=== PATIENT | female | born 1960 | race Caucasian/White ===

== ENCOUNTER → 2019-04-07 | Outpatient (CLI) | payer BC ==
--- NOTE | 2019-04-07 14:14 | REP ---
REASON FOR EXAM: Pain. COMPARISON: None. AP and lateral views of the left femur were obtained. Minimal asymmetric hip joint space narrowing is noted with minimal knee degenerative changes. There is no acute fracture or destructive osseous lesion. Electronically Signed by Daniele Soto DO 04/08/2019 03:08 P
--- NOTE | 2019-04-07 14:25 | REP ---
Left hip: Two views. History: Left hip pain. Comparison left hip radiographs are from January 11, 2008. Findings: AP and frog-leg views of the left hip show smooth rounded femoral head and intact hip joint space. Periarticular soft tissues are unremarkable. Left hemipelvis appears intact. Impression: Negative radiographs of the left hip. Electronically Signed by Manuel Bustillos MD 04/07/2019 02:17 P
== END ==
LOC: M LRY 08:55
PROVIDERS: ATTEND Internal Medicine
DX: M25.552 Pain in left hip (principal)

== ENCOUNTER → 2020-12-13 | Outpatient (CLI) | payer BC ==
--- NOTE | 2020-12-13 17:15 | REP ---
INDICATION: PELVIC PAIN W/ FM H/O OF OVARION CA. COMPARISON: Multiple the latest 02/03/2014 TECHNIQUE: Transvesical and transvaginal FINDINGS: The uterus measures 8.4 x 3.1 x 4.9 cm. The parenchymal echo prior and is stable in appearance compared to the prior exam. There are no focal masses. The endometrial echo complex measures 1.6 mm in its greatest thickness and is within normal limits. The right ovary was not visualized transvesical air transvaginally. The patient is status post left oophorectomy. No adnexal masses were identified. There is no evidence of free fluid. IMPRESSION: No abnormalities noted on this limited exam with findings as described above. <Electronically signed by Daniele Soto > 12/13/20 [id number]
== END ==
LOC: M RAD 16:31
PROVIDERS: ATTEND Internal Medicine
DX: R10.2 Pelvic and perineal pain (principal)

== ENCOUNTER → 2023-12-12 | Outpatient (REF) | payer OTHER | LOC: M LAB REF 11:23 | PROVIDERS: ATTEND Internal Medicine | DX: E83.52 Hypercalcemia (principal) ==

== ENCOUNTER → 2024-04-29 | Outpatient (REF) | payer OTHER | LOC: M LAB REF 16:18 | PROVIDERS: ATTEND Internal Medicine | DX: E21.2 Other hyperparathyroidism (principal) ==

== ENCOUNTER → 2024-11-18 | Outpatient (REF) | payer OTHER ==
[2024-11-20 08:13] LABS: PROTEIN, TOTAL SO 7.5 g/dL (6.1-8.1)
[2024-11-20 16:52] LABS: UPEP CREATININE 49 mg/dL (20-275); UPEP TOTAL PROTEIN < 4 mg/dL (5-24)
== END ==
LOC: M LAB REF 17:18
PROVIDERS: ATTEND Internal Medicine
DX: E87.5 Hyperkalemia (principal)

== ENCOUNTER → 2024-12-15 | Outpatient (REF) | payer OTHER ==
[2024-12-15 14:14] LABS: RSV AMPLIFICATION NEGATIVE (NEGATIVE)
== END ==
LOC: M LAB REF 12:05
PROVIDERS: ATTEND Nurse Practitioner Family
DX: J06.9 Acute upper respiratory infection, unspecified (principal); Z20.828 Contact with and (suspected) exposure to other viral communicable diseases

== ENCOUNTER → 2025-06-23 | Outpatient (REF) | payer OTHER | LOC: M LAB REF 12:35 | PROVIDERS: ATTEND Internal Medicine | DX: E87.5 Hyperkalemia (principal) ==